=== PATIENT | female | born 1950 | race Caucasian/White ===

== ENCOUNTER 2024-03-04 19:28 | Emergency (ER) | payer MEDICARE, BC ==
[~2024-03-04] VITALS: Ht 172.7 cm; Wt 76.2 kg
[2024-03-04] MEDS ORDERED: ONDANSETRON HCL/PF 4 MG/2 ML VIAL ONE (19:45)
[2024-03-04] MEDS ORDERED: MECLIZINE HCL 12.5 MG TABLET ONE (19:45)
[2024-03-04] MEDS ORDERED: LORAZEPAM INJ 2 MG/ML VIAL ONE (19:45)
[2024-03-04] MEDS: ONDANSETRON HCL/PF 4 MG/2 ML VIAL IVP ONE (19:56)
[2024-03-04] MEDS: IV NS 0.9% 1,000 ML BAG IV ONE (19:56)
[2024-03-04] MEDS: LORAZEPAM INJ 2 MG/ML VIAL IV ONE (19:56)
[2024-03-04] MEDS: MECLIZINE HCL 12.5 MG TABLET PO ONE (20:01)
[2024-03-04 20:07] LABS: BASOPHILS % (AUTO) 0.4 % (0.0-2.0); EOSINOPHILS # (AUTO) 0.2 K/uL (0.0-0.7); EOSINOPHILS % (AUTO) 1.9 % (0.0-6.0); HEMATOCRIT 34 % (33-45); HEMOGLOBIN 11.6 g/dL (11.5-14.8); LYMPHOCYTES # (AUTO) 2.6 K/uL (0.8-4.8); LYMPHOCYTES % (AUTO) 31.9 % (20.0-44.0); MEAN CORPUSCULAR HEMOGLOBIN 31 PG (26.0-33.0); MEAN CORPUSCULAR HGB CONC 34 g/dl (31.0-36.0); MEAN CORPUSCULAR VOLUME 92 fL (82-100); MONOCYTES # (AUTO) 0.4 K/uL (0.1-1.30); MONOCYTES % (AUTO) 5.4 % (2.0-12.0); NEUTROPHILS # (AUTO) 4.9 K/uL (1.8-8.9); NEUTROPHILS % (AUTO) 60.4 % (43.0-81.0); PLATELET COUNT (AUTO) 210 K/uL (150-450); RED CELL DISTRIBUTION WIDTH 13.4 % (11.5-15.0); WHITE BLOOD COUNT (AUTO) 8.1 K/uL (4.3-11.0)
[2024-03-04 20:20] LABS: ALBUMIN 4.1 g/dL (3.4-5.0); BILIRUBIN,DIRECT 0.1 mg/dL (0.0-0.2); BILIRUBIN,TOTAL 0.3 mg/dL (0.2-1.0); CALCIUM, SERUM 10.2 mg/dL (8.5-10.1); CREATININE 1.3 mg/dL (0.6-1.3); POTASSIUM 3.8 mmol/L (3.5-5.1); TOTAL PROTEIN, SERUM 7.3 g/dL (6.4-8.2)
[2024-03-04] MEDS ORDERED: MECL-182 PO (20:55)
[2024-03-04 22:54] VITALS: BP 141/70; TEMP 98; O2SAT 99
== END 2024-03-04 22:54 | disposition home or self-care (01) ==
LOC: ER 19:36
DX: R11.2 Nausea with vomiting, unspecified (principal); H81.399 Other peripheral vertigo, unspecified ear; E11.9 Type 2 diabetes mellitus without complications; I10 Essential (primary) hypertension
CPT/HCPCS: 99285; 96374; 70450; 96361; 96375; 93005; 85025; 80048; 83690; 80076; 36415; J8597; J2060; J2405; J7030